=== PATIENT | male | born 1985 | race Caucasian/White ===

== ENCOUNTER → 2018-05-28 14:49 | Outpatient (CLI) | payer OTHER, SELFPAY ==
--- NOTE | 2018-05-28 15:01 | RAD_ITS ---
STUDY: X-RAY - THORACIC SPINE REASON FOR EXAM: Male, 33 years old. Worsening back pain TECHNIQUE: 3 view(s) of the thoracic spine were obtained. COMPARISON: None. FINDINGS: Normal kyphosis of the thoracic spine. There is no substantial scoliosis. Normal thoracic vertebrae and endplates. Normal disc space heights. The soft tissue structures are unremarkable. RAD/Thoracic Spine 3 Views IMPRESSION: Normal x-ray examination of the thoracic spine. Electronically Signed: Tulio Gamboa MD at 16:15 EDT , Service support ,
[2018-05-28 16:11] LABS: Absolute Lymphocyte Count 1.88 X10^3/ul (0.83-4.51); Absolute Neutrophil Count 3.9 X10^3/uL (2.0-7.7); Basophil# 0.01 X10^3/uL; Basophil% 0.2 % (0-1); Eosinophil# 0.13 X10^3/uL; Hematocrit 44.2 % (40-54); Hemoglobin 14.7 g/dl (13.0-16.5); Lymphocyte # 1.88 X10^3/ul (4.0); Lymphocyte % 29.5 % (19-41); Mean Corp Hgb Conc 33.3 g/gl (32-36); Mean Corpuscular Hgb 28.3 pg (27.0-32.0); Mean Corpuscular Volume 85.2 fL (80-94); Mean Platelet Vol. 10.5 fl (6.2-12.0); Monocyte# 0.44 X10^3/uL; Monocyte% 6.9 % (0-10); Neutrophil % 61.1 % (47-70); Platelet Count 186 K/mm3 (150-450); RBC Distribution Width CV 12.1 % (11.6-14.6); RBC Distribution Width SD 37.4 fl (35.1-43.9); Red Blood Count 5.19 M/mm3 (4.6-6.2); White Blood Count 6.4 K/mm3 (4.4-11.0)
[2018-05-28 16:12] LABS: POSITIVE COUNT NO; POSITIVE DIFFERENTIAL NO; POSITIVE MORPHOLOGY NO
[2018-05-28 16:34] LABS: Alanine Aminotransfer ALT/SGPT 33 U/L (16-61); Cholesterol 173 mg/dL (200); EST Glomerular Filtration Rate 103 mL/min (>60); Est Glom Filt Rate - Afr Amer 124 mL/min (>60); High Density Lipoprotein 46 mg/dL
[2018-06-02 16:11] LABS: Testosterone, Free 11.31 ng/dL (5.00-21.00)
[2018-06-03 11:38] LABS: Testosterone, % Free 3.82 % (1.50-4.20); Testosterone, Total 296 ng/dL (264-916)
== END ==
LOC: MFPLAB 14:50 → MTRAD 14:55
PROVIDERS: Family Provider Family Medicine; PCP Family Medicine; Visit Provider Family Medicine
DX: Z00.00 Encounter for general adult medical examination without abnormal findings (principal); M54.6 Pain in thoracic spine; G89.29 Other chronic pain; R79.89 Other specified abnormal findings of blood chemistry
CPT/HCPCS: 36415; 72072; 82465; 82565; 83718; 84402; 84403; 84460; 85025

== ENCOUNTER → 2019-02-03 14:19 | Outpatient (CLI) | payer OTHER, SELFPAY ==
[2019-02-03 08:58] VITALS: BMI 32.4
== END ==
PROVIDERS: Family Provider Family Medicine; PCP Family Medicine; Referring Provider Physician Assistant; Visit Provider Physician Assistant
DX: J02.9 Acute pharyngitis, unspecified (principal)
CPT/HCPCS: 87081

== ENCOUNTER 2019-06-17 16:00 | Outpatient (RCR) | payer OTHER, SELFPAY ==
[2019-02-03 08:58] VITALS: BMI 32.4
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
--- NOTE | 2019-08-26 12:01 | HP.PTDCNRP_ITS ---
HP - Discharge Summary (1) - Patient Information ROSA WATKINS was seen in my office for initial evaluation on 06/17/19. The following Plan of Care was established for this patient: Initial Frequency: 1-2x /Week Initial Duration: 4 Weeks - Anticipated Interventions Patient/Client Instruction: Educate patient on: Condition, Plan of Care For the Purpose of:: To decrease pain, To increase ROM, To improve muscle perfor sarah and motor function, To increase tolerance to activity/condition/position, To improve ability of physical actions for home/community/work/leisure, To improve health of tissue, To decrease soft tissue restriction, To increase flexibility/ROM, To improve endurance, To reduce risk of recurrence, To improve ability to perform tasks related to life management Therapeutic Exercise to Include: Strength training, Body mechanics, Postural training, Flexibilty training, Dynamic Lumbar Stabilization, Day Exercises For the Purpose of:: To decrease pain, To increase ROM, To improve muscle performance and motor function, To increase tolerance to activity/condition/position, To improve ability of physical actions for home/community/work/leisure, To improve health of tissue, To decrease soft tissue restriction, To increase flexibility/ROM, To reduce risk of recurrence, To improve ability to perform tasks related to life management Manual Therapy Techniques to Include: Mobilization Comment: LUMBAR For the Purpose of:: To decrease pain, To increase ROM, To improve nutrient delivery to tissue, To increase oxygenation perfusion, To improve health of tissue, To decrease soft tissue restriction TENS: Yes IF ES: Yes Cryotherapy (ice pack, ice massage): Yes Thermo therapy (hot pack): Yes Ultrasound (thermal/non thermal): Yes For the Purpose of:: To decrease pain, To increase ROM, To improve nutrient delivery to tissue, To increase oxygenation perfusion, To improve health of tissue, To decrease soft tissue restriction This patient was last seen in our office . Pertinent comments regarding their Physical therapy will appear below: Patient seen for PT FOR INTIAL EVALUATION for HEP. At this point I will be discontinuing this patient from physical therapy. I would be happy to see this patient again in the future if found appropriate by the physician. Thank you! Ruddy Rodriguez, PT, Cert MDT, OCS
== END 2019-06-17 19:00 | disposition home or self-care (01) ==
LOC: PT 16:00
PROVIDERS: Family Provider Family Medicine; PCP Family Medicine; Referring Provider Chiropractor; Visit Provider Chiropractor
DX: M51.26 Other intervertebral disc displacement, lumbar region (principal)
CPT/HCPCS: 97110; 97162

== ENCOUNTER → 2020-04-10 14:38 | Outpatient (CLI) | payer OTHER, SELFPAY ==
[2019-02-03 08:58] VITALS: BMI 32.4
[2020-04-10 17:55] LABS: Absolute Lymphocyte Count 1.58 X10^3/uL (0.83-4.51); Absolute Neutrophil Count 4.5 X10^3/uL (2.0-7.7); Basophil# 0.01 X10^3/uL; Basophil% 0.1 % (0-1); Eosinophil# 0.11 X10^3/uL; Eosinophils% 1.6 % (0-5); Hematocrit 45.1 % (40-54); Hemoglobin 14.4 g/dL (13.0-16.5); Lymphocyte # 1.58 X10^3/ul (4.0); Lymphocyte % 23.3 % (19-41); Mean Corp Hgb Conc 31.9 g/dL (32-36); Mean Corpuscular Hgb 27.2 pg (27.0-32.0); Mean Corpuscular Volume 85.3 fL (80-94); Mean Platelet Vol. 11.2 fl (6.2-12.0); Monocyte% 8.8 % (0-10); NRBC Flagged by Analyzer 0 % (0-5); Neutrophil # 4.47 X10^3/uL (2.7-7.7); Neutrophil % 66.1 % (47-70); Platelet Count 227 K/mm3 (150-450); RBC Distribution Width CV 12.6 % (11.6-14.6); RBC Distribution Width SD 39.2 fl (35.1-43.9); Red Blood Count 5.29 M/mm3 (4.6-6.2); White Blood Count 6.8 K/mm3 (4.4-11.0)
[2020-04-10 18:14] LABS: Cholesterol 198 mg/dL (200); High Density Lipoprotein 38 mg/dL; PSA,Total- Diagnostic 0.75 ng/mL (0.0-4.0); Triglycerides 283 mg/dL; Very Low Density Lipoprotein 57 mg/dL (5-40)
== END ==
PROVIDERS: PCP Family Medicine; Referring Provider Family Medicine; Visit Provider Family Medicine
DX: Z00.00 Encounter for general adult medical examination without abnormal findings (principal); E34.9 Endocrine disorder, unspecified
CPT/HCPCS: 36415; 80061; 84153; 85025

== ENCOUNTER → 2021-08-01 15:32 | Outpatient (CLI) | payer OTHER, SELFPAY ==
[2021-08-01 18:23] LABS: Creatinine, Serum 0.85 mg/dL (0.70-1.30); EST Glomerular Filtration Rate 108 mL/min (>60); Est Glom Filt Rate - Afr Amer 131 mL/min (>60)
[2021-08-02 09:28] LABS: Hepatitis C Antibody Non-Reactive (Nonreactive)
== END ==
PROVIDERS: PCP Family Medicine; Referring Provider Family Medicine; Visit Provider Family Medicine
DX: Z00.00 Encounter for general adult medical examination without abnormal findings (principal); Z11.59 Encounter for screening for other viral diseases
CPT/HCPCS: 36415; 82565; 86803

== ENCOUNTER → 2022-03-06 | Outpatient (CLI) | payer OTHER, SELFPAY ==
[2022-03-06 16:07] LABS: T4 Free Direct 0.91 ng/dL (0.76-1.46); Thyroid Stim Hormone (TSH) 1.11 uIU/mL (0.358-3.74)
== END | disposition home or self-care (01) ==
LOC: MFPLAB 13:44
PROVIDERS: PCP Family Medicine; Referring Provider Family Medicine; Visit Provider Family Medicine
DX: L65.9 Nonscarring hair loss, unspecified (principal)
CPT/HCPCS: 36415; 84439; 84443; 84481

== ENCOUNTER → 2022-05-23 | Outpatient (CLI) | payer OTHER, SELFPAY ==
[2022-05-23 12:01] LABS: Absolute Lymphocyte Count 1.47 X10^3/uL (0.83-4.51); Absolute Neutrophil Count 3.5 X10^3/uL (2.0-7.7); Basophil# 0.01 X10^3/uL; Basophil% 0.2 % (0-1); Eosinophil# 0.09 X10^3/uL; Eosinophils% 1.6 % (0-5); Hematocrit 41.6 % (40-54); Hemoglobin 13.7 g/dL (13.0-16.5); Lymphocyte # 1.47 X10^3/ul (0.83-4.51); Lymphocyte % 26.3 % (19-41); Mean Corp Hgb Conc 32.9 g/dL (32-36); Mean Corpuscular Hgb 28.6 pg (27.0-32.0); Mean Corpuscular Volume 86.8 fL (80-94); Mean Platelet Vol. 10.9 fl (6.2-12.0); Monocyte# 0.48 X10^3/uL; Monocyte% 8.6 % (0-10); NRBC Flagged by Analyzer 0 % (0-5); Neutrophil % 62.8 % (47-70); Platelet Count 208 K/mm3 (150-450); RBC Distribution Width CV 12.1 % (11.6-14.6); RBC Distribution Width SD 38.9 fl (35.1-43.9); Red Blood Count 4.79 M/mm3 (4.6-6.2); White Blood Count 5.6 K/mm3 (4.4-11.0)
[2022-05-23 12:38] LABS: ALB/GLOB Ratio 1.2 RATIO (0.9-2.4); AST(SGOT) 18 U/L (15-37); Alanine Aminotransfer ALT/SGPT 36 U/L (16-61); Albumin, Serum 4.1 g/dL (3.2-5.0); Alkaline Phosphatase 51 U/L (45-117); Anion Gap 5 (5-15); BUN 19 mg/dL (7-18); BUN/Creat Ratio 21.2 RATIO (10-20); Calcium,Total 9.1 mg/dL (8.5-10.1); Chloride 105 mmol/L (98-107); Cholesterol 189 mg/dL (200); EST Glomerular Filtration Rate 101 mL/min (>60); Est Glom Filt Rate - Afr Amer 122 mL/min (>60); Globulin 3.4 g/dL (2.2-4.2); Glucose 101 mg/dL (74-106); High Density Lipoprotein 42 mg/dL; Potassium 4.3 mmol/L (3.5-5.1); Protein, Total 7.5 g/dL (6.4-8.2); Sodium Level 137 mmol/L (136-145); Triglycerides 92 mg/dL; Very Low Density Lipoprotein 18 mg/dL (5-40)
[2022-05-26 00:02] LABS: ANTINUCLEAR ANTIBODIES DIRECT Positive (Negative)
[2022-05-31 07:42] LABS: HLA B27 Negative (.)
[2022-06-02 19:06] LABS: Anti-Centromere B Ab <0.2 AI (0.0-0.9); Anti-Chromatin <0.2 AI (0.0-0.9); Anti-Jo <0.2 AI (0.0-0.9); Anti-Scleroderma-70 AB <0.2 AI (0.0-0.9); Anti-ribosomal P Antibodies <0.2 AI (0.0-0.9); RNP Ab 7.5 AI (0.0-0.9); SJOGREN'S Anti-SS-A test < 0.2 AI (0.0-0.9); SJOGREN'S Anti-SS-B test < 0.2 AI (0.0-0.9); Smith Ab <0.2 AI (0.0-0.9); Smith/RNP Ab <0.2 AI (0.0-0.9)
[2022-06-02 19:14] LABS: Anti-dsDNA Ab <1 IU/mL (0-9)
== END | disposition home or self-care (01) ==
LOC: MFPLAB 10:16
PROVIDERS: PCP Family Medicine; Referring Provider Family Medicine; Visit Provider Family Medicine
DX: L63.9 Alopecia areata, unspecified (principal); R79.89 Other specified abnormal findings of blood chemistry; Z13.220 Encounter for screening for lipoid disorders; R76.8 Other specified abnormal immunological findings in serum
CPT/HCPCS: 36415; 80053; 80061; 81374; 84403; 85025; 86038; 86225; 86235

== ENCOUNTER → 2022-08-28 | Outpatient (CLI) | payer OTHER, SELFPAY ==
[2022-08-28 11:18] LABS: EXAGEN MAILED SPECIMEN
[2022-08-28 12:20] LABS: Erythrocyte Sedimentation Rate 5 mm/hr (0-20)
[2022-08-28 12:26] LABS: Absolute Lymphocyte Count 1.85 X10^3/uL (0.83-4.51); Absolute Neutrophil Count 4.3 X10^3/uL (2.0-7.7); Basophil# 0.01 X10^3/uL; Basophil% 0.1 % (0-1); Eosinophils% 1.5 % (0-5); Hematocrit 43.1 % (40-54); Hemoglobin 14.3 g/dL (13.0-16.5); Lymphocyte # 1.85 X10^3/ul (0.83-4.51); Lymphocyte % 27.5 % (19-41); Mean Corp Hgb Conc 33.2 g/dL (32-36); Mean Corpuscular Hgb 28.5 pg (27.0-32.0); Mean Corpuscular Volume 85.9 fL (80-94); Mean Platelet Vol. 10.7 fl (6.2-12.0); Monocyte# 0.49 X10^3/uL; Monocyte% 7.3 % (0-10); NRBC Flagged by Analyzer 0 % (0-5); Neutrophil # 4.25 X10^3/uL (2.7-7.7); Neutrophil % 63.3 % (47-70); Platelet Count 212 K/mm3 (150-450); RBC Distribution Width CV 12.3 % (11.6-14.6); RBC Distribution Width SD 38.1 fl (35.1-43.9); Red Blood Count 5.02 M/mm3 (4.6-6.2); White Blood Count 6.7 K/mm3 (4.4-11.0)
[2022-08-28 12:32] LABS: Partial Thromboplast Time 33.5 Seconds (24.1-36.2)
[2022-08-28 12:42] LABS: ALB/GLOB Ratio 1.3 RATIO (0.9-2.4); AST(SGOT) 33 U/L (15-37); Alanine Aminotransfer ALT/SGPT 63 U/L (16-61); Albumin, Serum 4.5 g/dL (3.2-5.0); Alkaline Phosphatase 55 U/L (45-117); Anion Gap 7 (5-15); BUN 20 mg/dL (7-18); BUN/Creat Ratio 18.5 RATIO (10-20); CRP < 2.90 mg/L (0.0-3.0); Calcium,Total 9.8 mg/dL (8.5-10.1); Chloride 104 mmol/L (98-107); Creatinine, Serum 1.08 mg/dL (0.70-1.30); EST Glomerular Filtration Rate 81 mL/min (>60); Est Glom Filt Rate - Afr Amer 98 mL/min (>60); Globulin 3.5 g/dL (2.2-4.2); Glucose 98 mg/dL (74-106); Potassium 4.1 mmol/L (3.5-5.1); Sodium Level 137 mmol/L (136-145)
[2022-08-28 15:11] LABS: Color, Urine Straw (Yellow); Glucose, Dipstick Normal (Normal); Ketone-Dipstick Negative (Negative); Leukocyte Esterase-Dipstick Negative /ul (Negative); Nitrite-Dipstick Negative (Negative); Occult Blood-Urine Negative /ul (Negative); Protein-Dipstick Negative (Negative); Specific Gravity, Urine 1.005 (1.002-1.030); Urine Bilirubin Dipstick Negative (Negative); Urine Clarity Clear (Clear); Urine Urobilinogen Normal (Normal)
[2022-08-28 15:57] LABS: Protein, Urine (Random) < 6.0 mg/dL (<11.9)
[2022-08-29 16:53] LABS: Thrombin Time 18.9 sec (0.0-23.0)
[2022-08-29 18:07] LABS: Dilute Prothrombin Time (dPT) 40.7 sec (0.0-47.6); Dilute Russell Viper Venom 46.8 sec (0.0-47.0); Hexagonal Phase Phospholipid 7 sec (0-11); PTT-LA 42.1 sec (0.0-51.9); Thrombin Time 18.3 sec (0.0-23.0); dPT Confirm Ratio 1.08 Ratio (0.00-1.34)
[2022-08-30 12:23] LABS: Interpretation Comment: (.)
== END | disposition home or self-care (01) ==
PROVIDERS: PCP Family Medicine; Referring Provider Internal Medicine Rheumatology; Visit Provider Internal Medicine Rheumatology
DX: R76.8 Other specified abnormal immunological findings in serum (principal); L63.9 Alopecia areata, unspecified; M21.41 Flat foot [pes planus] (acquired), right foot; R79.89 Other specified abnormal findings of blood chemistry; J45.909 Unspecified asthma, uncomplicated
CPT/HCPCS: 36415; 80053; 81002; 82570; 84156; 85025; 85598; 85610; 85652; 85670; 85730; 86140

== ENCOUNTER → 2022-10-10 | Outpatient (CLI) | payer OTHER, SELFPAY ==
[2022-10-10 12:09] LABS: Absolute Lymphocyte Count 1.75 X10^3/uL (0.83-4.51); Absolute Neutrophil Count 3.6 X10^3/uL (2.0-7.7); Basophil# 0.01 X10^3/uL; Basophil% 0.2 % (0-1); Eosinophil# 0.09 X10^3/uL; Eosinophils% 1.5 % (0-5); Hematocrit 43.2 % (40-54); Hemoglobin 14.1 g/dL (13.0-16.5); Lymphocyte # 1.75 X10^3/ul (0.83-4.51); Lymphocyte % 29.1 % (19-41); Mean Corp Hgb Conc 32.6 g/dL (32-36); Mean Corpuscular Hgb 28.5 pg (27.0-32.0); Mean Corpuscular Volume 87.3 fL (80-94); Mean Platelet Vol. 10.7 fl (6.2-12.0); Monocyte# 0.59 X10^3/uL; Monocyte% 9.8 % (0-10); NRBC Flagged by Analyzer 0 % (0-5); Neutrophil # 3.55 X10^3/uL (2.7-7.7); Neutrophil % 59.1 % (47-70); Platelet Count 253 K/mm3 (150-450); RBC Distribution Width CV 12.4 % (11.6-14.6); RBC Distribution Width SD 39.6 fl (35.1-43.9); Red Blood Count 4.95 M/mm3 (4.6-6.2)
[2022-10-10 12:41] LABS: ALB/GLOB Ratio 1.4 RATIO (0.9-2.4); AST(SGOT) 29 U/L (15-37); Alanine Aminotransfer ALT/SGPT 61 U/L (16-61); Albumin, Serum 4.5 g/dL (3.2-5.0); Alkaline Phosphatase 48 U/L (45-117); Anion Gap 8 (5-15); BUN 20 mg/dL (7-18); BUN/Creat Ratio 21.3 RATIO (10-20); Calcium,Total 9.2 mg/dL (8.5-10.1); Chloride 104 mmol/L (98-107); Cholesterol 223 mg/dL (200); Creatinine, Serum 0.94 mg/dL (0.70-1.30); EST Glomerular Filtration Rate 95 mL/min (>60); Est Glom Filt Rate - Afr Amer 115 mL/min (>60); Globulin 3.2 g/dL (2.2-4.2); Glucose 90 mg/dL (74-106); High Density Lipoprotein 43 mg/dL; Potassium 4.4 mmol/L (3.5-5.1); Protein, Total 7.7 g/dL (6.4-8.2); Sodium Level 138 mmol/L (136-145); Triglycerides 118 mg/dL; Very Low Density Lipoprotein 24 mg/dL (5-40)
== END | disposition home or self-care (01) ==
LOC: MFPLAB 10:07
PROVIDERS: PCP Family Medicine; Referring Provider Family Medicine; Visit Provider Dermatology Pediatric Dermatology
DX: L63.8 Other alopecia areata (principal); Z79.899 Other long term (current) drug therapy
CPT/HCPCS: 36415; 80053; 80061; 85025

== ENCOUNTER → 2023-01-16 | Outpatient (CLI) | payer OTHER, SELFPAY ==
[2023-01-16 15:01] LABS: Absolute Lymphocyte Count 1.89 X10^3/uL (0.83-4.51); Absolute Neutrophil Count 4.2 X10^3/uL (2.0-7.7); Basophil# 0.02 X10^3/uL; Basophil% 0.3 % (0-1); Eosinophil# 0.07 X10^3/uL; Hematocrit 44.3 % (40-54); Hemoglobin 14.3 g/dL (13.0-16.5); Lymphocyte # 1.89 X10^3/ul (0.83-4.51); Mean Corp Hgb Conc 32.3 g/dL (32-36); Mean Corpuscular Hgb 28.7 pg (27.0-32.0); Mean Corpuscular Volume 88.8 fL (80-94); Mean Platelet Vol. 10.7 fl (6.2-12.0); Monocyte# 0.54 X10^3/uL; NRBC Flagged by Analyzer 0 % (0-5); Neutrophil # 4.19 X10^3/uL (2.7-7.7); Platelet Count 261 K/mm3 (150-450); RBC Distribution Width CV 12.2 % (11.6-14.6); RBC Distribution Width SD 38.7 fl (35.1-43.9); Red Blood Count 4.99 M/mm3 (4.6-6.2); White Blood Count 6.8 K/mm3 (4.4-11.0)
[2023-01-16 15:48] LABS: ALB/GLOB Ratio 1.2 RATIO (0.9-2.4); AST(SGOT) 16 U/L (15-37); Alanine Aminotransfer ALT/SGPT 47 U/L (16-61); Albumin, Serum 4.1 g/dL (3.2-5.0); Alkaline Phosphatase 50 U/L (45-117); Anion Gap 7 (5-15); BUN 16 mg/dL (7-18); BUN/Creat Ratio 17.6 RATIO (10-20); Calcium,Total 9.1 mg/dL (8.5-10.1); Chloride 106 mmol/L (98-107); Cholesterol 147 mg/dL (200); Creatinine, Serum 0.91 mg/dL (0.70-1.30); EST Glomerular Filtration Rate 99 mL/min (>60); Est Glom Filt Rate - Afr Amer 120 mL/min (>60); Globulin 3.4 g/dL (2.2-4.2); Glucose 90 mg/dL (74-106); High Density Lipoprotein 34 mg/dL; Potassium 3.9 mmol/L (3.5-5.1); Protein, Total 7.5 g/dL (6.4-8.2); Sodium Level 139 mmol/L (136-145); Triglycerides 93 mg/dL; Very Low Density Lipoprotein 19 mg/dL (5-40)
[2023-01-18 16:09] LABS: ANTINUCLEAR ANTIBODIES DIRECT Positive (Negative); Anti-Centromere B Ab <0.2 AI (0.0-0.9); Anti-Chromatin <0.2 AI (0.0-0.9); Anti-Jo <0.2 AI (0.0-0.9); Anti-Scleroderma-70 AB <0.2 AI (0.0-0.9); RNP Ab >8.0 AI (0.0-0.9); SJOGREN'S Anti-SS-A test < 0.2 AI (0.0-0.9); SJOGREN'S Anti-SS-B test < 0.2 AI (0.0-0.9); Smith Ab <0.2 AI (0.0-0.9)
[2023-01-18 18:29] LABS: Anti-dsDNA Ab <1 IU/mL (0-9)
== END | disposition home or self-care (01) ==
PROVIDERS: PCP Family Medicine; Referring Provider Family Medicine; Visit Provider Family Medicine
DX: E78.00 Pure hypercholesterolemia, unspecified (principal)
CPT/HCPCS: 36415; 80053; 80061; 85025; 86038; 86225; 86235

== ENCOUNTER → 2023-05-22 | Outpatient (CLI) | payer OTHER, SELFPAY ==
--- NOTE | 2023-05-22 10:59 | RAD_ITS ---
STUDY: X-RAY - LUMBOSACRAL SPINE REASON FOR EXAM: Male, 38 years old. Hx of herniated disc, pain worse TECHNIQUE: 7 view(s) of the lumbosacral spine were obtained with flexion and extension views. COMPARISON: None FINDINGS: Normal lumbar lordosis. There is no substantial scoliosis. There is normal alignment of the vertebrae. Minimal flexion and extension seen. No subluxations. Normal vertebral bodies and endplates. Normal disc space heights. Normal bilateral sacral ala, sacroiliac joints, and visualized sacrum. Normal visualized soft tissue structures. RAD/L/S Spine w Bend Min 6 Vw IMPRESSION: Normal x-ray examination of the lumbosacral spine. Electronically Signed: Xavier Lebron MD at 20:44 EDT ,
== END | disposition home or self-care (01) ==
LOC: MTRAD 10:58
PROVIDERS: PCP Family Medicine; Visit Provider Family Medicine
DX: M51.26 Other intervertebral disc displacement, lumbar region (principal)
CPT/HCPCS: 72114

== ENCOUNTER 2023-06-25 10:30 | Outpatient (RCR) | payer OTHER, SELFPAY ==
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
--- NOTE | 2023-07-24 13:15 | HP.PT.NRP ---
Patient Information Patient Information: ROSA WATKINS was seen in my office for initial evaluation on 06/05/23. The following Plan of Care was established for this patient: POC Established Initial Frequency: 2x /Week Initial Duration: 4 Weeks Anticipated Interventions Patient/Client Instruction: Educate patient on: Benefits of Fitness Program Therapeutic Exercise to Include: Strength training, Endurance training, Balance training, Coordination, Agility training, Body mechanics, Postural training, Flexibilty training, Gait and locomotor training, Neuromotor development, In an aquatic setting, Passive ROM, Active ROM, Dynamic Lumbar Stabilization and Scapular Strength/Stabilization For the Purpose of:: To improve muscle performance and motor function Last Seen Last Seen: This patient was last seen in our office . Pertinent comments regarding their Physical therapy will appear below: Patient has not attended PT in over 30 days- he is appropriate to return to MD for further evaluation- according to his PT notes he was still having significant s/s. Discharge. At this point I will be discontinuing this patient from physical therapy. I would be happy to see this patient again in the future if found appropriate by the physician. Thank you! Radha Ozuna, DPT Balance/Gait/Functional tests Balance/Special Test Scores Oswestry Low Back Score: 23
== END 2023-06-25 19:00 | disposition home or self-care (01) ==
LOC: PT 10:30
PROVIDERS: PCP Family Medicine; Referring Provider Family Medicine; Visit Provider Family Medicine
DX: M51.26 Other intervertebral disc displacement, lumbar region (principal); M54.9 Dorsalgia, unspecified
CPT/HCPCS: 97113; 97162

== ENCOUNTER 2023-09-29 10:30 | Outpatient (RCR) | payer OTHER, SELFPAY ==
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
--- NOTE | 2023-08-27 11:16 | HP.PTREVAL_ITS ---
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 Please see the progress note below for an update on the physical therapy plan of care! Subjective Subjective: PATIENT REPORTS HE FEELS ALMOST BACK TO PRE-INJURY LEVEL HOWEVER HE HASN'T TESTED IT OUT TO THE DEGREE HE WAS POST INJURY TO KNOW FOR SURE. 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 HE REPORTS HE FEELS LIKE HE COULD DO THIS STUFF BUT HE HASN'T BECAUSE HE ISN'T SUPPOSED TO. PATIENT REPORTS HE HAS BEEN GETTING SOME TINGLING (POINTING TO THE OUTSIDE OF HIS L THIGH) IN THE LAST THIGH THAT COMES AND GOES AND OCCURS WITH PROLONGED SITTING ON THE COUCH. IT GOES AWAY QUICKLY WITH CHANGE OF POSITION. THE TINGLING STARTED IN THE PAST WEEK FOR NO APPARENT REASON. THIS IS THE FIRST TIME HE HAS HAD LLE SX'S. SX'S HAVE ALWAYS BEEN IN R LE AND THOSE ARE PROGRESSIVELY GETTING BETTER. CURRENTLY JUST A SMALL AREA OF NUMBESS ON THE LATERAL ASPECT OF R THIGH THAT IS ABOUT 1/4 THE SIZE IT WAS AFTER SURGERY. NO LONGER HAVING LOW BACK PAIN BUT IT DOES GET TIRED AT WORK. UPPER BACK IS TIGHT. R LEG IS GETTING STRONGER AND FEELS PRETTY EQUAL TO L NOW. STATES HE IS WEARING THE BRACE AT WORK ALL DAY EVERY DAY WITH ICE (WORKING 13 HRS A DAY) BUT FORGOT BRACE TODAY. OTHERWISE NOT WEARING BRACE UNLESS ON A LONG CAR RIDE. STOPPED MOBIC ABOUT 3 WKS AGO AND THIS IS THE FIRST TIME HE HAS BEEN OFF MOBIC IN 5 YEARS. NOT TAKING ANY OTHER PAIN MEDS EVEN OTC. ALSO ABLE TO STOP PEPSID. PATIENT REPORTS HE CAN GO UP STEPS RECIP NOW AND IT FEELS ABOUT THE SAME GOING UP WITH EA LEG. Objective Objective/Function: PATIENT WAS SEEN TODAY FOR RE-ASSESSMENT OF PROGRESS TOWARD THE SET PT GOALS AND THE NEED FOR FURTHER PHYSICAL THERAPY VS READINESS FOR DISCHARGE. PATIENT IS MAKING GOOD IMPROVEMENT TOWARD ALL GOALS HOWEVER HE HAS RECENT NEW ONSET OF MILD INTERMITTENT L LATERAL THIGH NUMBNESS AND HE IS STILL FUNCTIONING AT RESTRICTED ACTIVITY LEVEL. HE STATES HE WOULD LIKE TO START LIFTING MORE AND WALKING ON HIS TREADMILL MORE. HE REPORTS HE USE TO INCLINE HIS TREADMILL A LOT. THIS PT RECOMMENDED NOT INCREASING HIS LIFTING LIMIT FROM CURRENT 10 LBS BY MORE THAN 5 LBS A WEEK (OR LESS IF SX'S INCREASE) AND TO CONTINUE WALKING PROGRAM WITHOUT TREADMILL ON LEVEL OR NEAR LEVEL SURFACES. OK TO WEAN OUT OF BRACE SX'S ALLOW. UPON EXAM TODAY: Objective: Sitting/Standing Posture: REDUCED LUMBAR LORDOSIS BUT NO RELEVANT LATERAL SHIFT. Other Observations: INDEP GAIT INTO PT WITHOUT ANY ASSISTIVE DEVICES OR LOB. FAIR CADANCE AND EQUAL WEIGHT BEARING TIME UBALDO LE'S. NOT WEARING BACK BRACE. Sensory deficit: DECREASED LIGHT TOUCH SENSATION RIGHT LATERAL THIGH COMPARED TO LEFT. PATIENT REPORTS NORMAL SENSATION WITH LIGHT TOUCH TESTING OF L LATERAL THIGH. ROM deficit: MILD UBALDO HS AND GASTROC SOLEUS TIGHTNESS. Motor deficit: UBALDO LE'S 5/5. Dural Signs: NEGATIVE UBALDO LE'S. Lumbar mvmt loss: FLEX - MIN EXT - MERE UBALDO SG - MOD PATIENT DENIES PAIN, NUMBNESS AND TINGLING WITH LUMBAR ROM TESTING ALL PLANES. Core strength: FAIR HEP INSTRUCTION: INITIATED TRUNK FLEXION AND ROTATION IN LYING WITH SKTC AND LTR. PATIENT TOLERATED BOTH WELL. SEE HEP INST BELOW. PATIENT SAT UP OFF THE TABLE WITHOUT LOG ROLLING AND SHORTLY AFTER IN STANDING REPORTED FEELING LEFT LATERAL THIGH NUMBNESS. IT ABOLISHED IMMEDIATELY IN SITTING. FURTHER INSTRUCTIONS GIVEN TO PATIENT FOR TRYING TO AVOID LLE NUMBNES. FURTHER INSTRUCTIONS GIVEN FOR PROPER LIFTING AND CARRYING. PATIENT COMMUNICATED A GOOD UNDERSTANDING OF ALL INSTRUCTIONS AFTER GIVEN TODAY. CASE CONFERENCE WITH LULÚ Mchugh PTA BEFORE AND AFTER RE-CHECK TODAY. Plan Plan Plan: CONTINUE PT 2-3 TIMES A WK X 4-6 WKS FOR CORE STRENGTH AND STABILITY TRAINING WITH NEUTRAL SPINE. OK TO WEAN OUT OF BRACE OK TO INCREASE LIFTING BY 5 LBS A WK UNLESS SX'S INCREASE (GIVE FURTHER INSTRUCTIONS IN PROPER BODY MECHANICS FOR BENDING (HINGE IN HIPS), LIFTING AND CARRYING). CONTINUE LE ROM, STRETCHING AND STRENGTHENING. POSTURAL STRETCHING AND STRENGTHENING. Balance/Gait/Functional tests Balance/Special Test Scores Oswestry Low Back Score: 11 Goals Goals Goal 1:: DECREASE C/O LOW BACK AND R LE SX'S. Goal Time Frame: 6-8 Weeks Goal Progress: Progressing Goal 2:: IMPROVE PERSONAL CARE, STANDING, SOCIAL LIFE, TRAVEL, HOMEMAKING AND WORK FUNCTION Goal Time Frame: 6-8 Weeks Goal Progress: Progressing Goal 3:: INSTRUCT IN PROPHYLAXIS Goal Time Frame: 6-8 Weeks Goal Progress: Progressing Anticipated Interventions Anticipated Interventions Patient/Client Instruction: Educate patient on: Condition, Plan of Care and Risk Factors For the Purpose of:: To improve self management Therapeutic Exercise to Include: Strength training, Body mechanics, Postural training, Flexibilty training, Neuromotor development and Dynamic Lumbar Stabilization For the Purpose of:: To decrease pain, To increase ROM, To improve muscle performance and motor function, To increase tolerance to activity/condition/position and To improve ability of physical actions for home/community/work/leisure Re-Evaluation Ending Re-evaluation ending: Please do not hesitate to contact me at [phone] by phone or Fax: if you have questions or concerns regarding this new plan of care! Sincerely, Shanique Sanders, PT, Cert MDT
--- NOTE | 2023-09-29 13:58 | HP.PTDCSUM ---
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 Discharge Date: 09/29/23 Please see the following information for a summary of their discharge status. Subjective Subjective: PATIENT REPORTS HE IS DOING GOOD. STATES HE TALKED TO HIS SURGEONS OFFICE AND THEY DO NOT NEED TO SEE HIM. REPORTS HE NO LONGER HAS ANY RESTRICTIONS AND ALL ACTIVITIES ARE TOLERATED. HE REPORTS HIS LEG SX'S HAVE RESOLVED. HE STATES HE IS NO LONGER WEARING HIS BACK BRACE AND FEELS READY TO BE DISCHARGED. REPORTS BEING ABLE TO CARRY AT LEAST 30 LBS WITH NO PROBLEMS. Pain L LE: Pain Intensity (Out of 10): 1 Overall Improvement % Improvement: 98 Objective Objective/Function: PATIENT WAS SEEN TODAY FOR RE-ASSESSMENT OF PROGRESS TOWARD THE SET PT GOALS AND THE NEED FOR FURTHER PHYSICAL THERAPY VS READINESS FOR DISCHARGE. ALL PT GOALS HAVE BEEN MET AND PATIENT IS APPROPRIATE FOR AND AGREEABLE TO D/C. UPON EXAM TODAY: Lumbar mvmt loss: FLEX - MIN EXT - MOD UBALDO SG - MIN PATIENT DENIES PAIN, NUMBNESS AND TINGLING WITH LUMBAR ROM TESTING ALL PLANES. Core strength: FAIR Goals Goal 1:: DECREASE C/O LOW BACK AND R LE SX'S. Goal Progress: Goal Met Goal 2:: IMPROVE PERSONAL CARE, STANDING, SOCIAL LIFE, TRAVEL, HOMEMAKING AND WORK FUNCTION Goal Progress: Goal Met Goal 3:: INSTRUCT IN PROPHYLAXIS Goal Progress: Goal Met Plan Plan: D/C D/C Information d/c sentence: If there are questions or concerns regarding this patient's physical therapy, please feel free to call me at [phone]. Thank you for the referral of this patient. Sincerely, Shanique Sanders, PT, Cert MDT Balance/Gait/Functional tests Balance/Special Test Scores Oswestry Low Back Score: 0 Improvement % Improvement: 98
== END 2023-09-29 19:00 | disposition home or self-care (01) ==
LOC: PT 10:30
PROVIDERS: PCP Family Medicine
DX: M51.26 Other intervertebral disc displacement, lumbar region (principal)
CPT/HCPCS: 97110; 97112; 97113; 97162; 97164; 97530

== ENCOUNTER → 2024-01-15 | Outpatient (CLI) | payer OTHER, SELFPAY ==
[2024-01-15 15:34] LABS: Absolute Lymphocyte Count 1.89 X10^3/uL (0.83-4.51); Absolute Neutrophil Count 2.8 X10^3/uL (2.0-7.7); Basophil# 0.01 X10^3/uL; Basophil% 0.2 % (0-1); Eosinophil# 0.07 X10^3/uL; Eosinophils% 1.3 % (0-5); Hematocrit 44.1 % (40-54); Hemoglobin 14.3 g/dL (13.0-16.5); Lymphocyte # 1.89 X10^3/ul (0.83-4.51); Lymphocyte % 35.9 % (19-41); Mean Corp Hgb Conc 32.4 g/dL (32-36); Mean Corpuscular Hgb 28.1 pg (27.0-32.0); Mean Corpuscular Volume 86.6 fL (80-94); Mean Platelet Vol. 10.6 fl (6.2-12.0); Monocyte# 0.49 X10^3/uL; Monocyte% 9.3 % (0-10); NRBC Flagged by Analyzer 0 % (0-5); Neutrophil # 2.79 X10^3/uL (2.7-7.7); Neutrophil % 52.9 % (47-70); Platelet Count 193 K/mm3 (150-450); RBC Distribution Width CV 12.8 % (11.6-14.6); RBC Distribution Width SD 40.2 fl (35.1-43.9); Red Blood Count 5.09 M/mm3 (4.6-6.2); White Blood Count 5.3 K/mm3 (4.4-11.0)
[2024-01-15 19:11] LABS: ALB/GLOB Ratio 1.2 RATIO (0.9-2.4); AST(SGOT) 41 U/L (15-37); Alanine Aminotransfer ALT/SGPT 100 U/L (16-61); Albumin, Serum 4.3 g/dL (3.2-5.0); Alkaline Phosphatase 59 U/L (45-117); Anion Gap 8 (5-15); BUN 19 mg/dL (7-18); BUN/Creat Ratio 18.1 RATIO (10-20); Calcium,Total 9.2 mg/dL (8.5-10.1); Chloride 107 mmol/L (98-107); Cholesterol 236 mg/dL (200); Creatinine, Serum 1.05 mg/dL (0.70-1.30); EST Glomerular Filtration Rate 83 mL/min (>60); Est Glom Filt Rate - Afr Amer 101 mL/min (>60); Globulin 3.5 g/dL (2.2-4.2); Glucose 93 mg/dL (74-106); High Density Lipoprotein 49 mg/dL; PSA,Total- Diagnostic 0.39 ng/mL (0.0-4.0); Potassium 4.2 mmol/L (3.5-5.1); Protein, Total 7.8 g/dL (6.4-8.2); Sodium Level 139 mmol/L (136-145); Triglycerides 98 mg/dL; Very Low Density Lipoprotein 20 mg/dL (5-40)
[2024-01-19 12:09] LABS: ANTINUCLEAR ANTIBODIES DIRECT Positive (Negative)
[2024-01-22 11:09] LABS: Anti-Centromere B Ab <0.2 AI (0.0-0.9); Anti-Chromatin <0.2 AI (0.0-0.9); Anti-Jo <0.2 AI (0.0-0.9); Anti-Scleroderma-70 AB <0.2 AI (0.0-0.9); Anti-dsDNA Ab <1 IU/mL (0-9); RNP Ab >8.0 AI (0.0-0.9); SJOGREN'S Anti-SS-A test < 0.2 AI (0.0-0.9); SJOGREN'S Anti-SS-B test < 0.2 AI (0.0-0.9); Smith Ab <0.2 AI (0.0-0.9)
== END | disposition home or self-care (01) ==
LOC: MFPLAB 11:30
PROVIDERS: PCP Family Medicine; Visit Provider Family Medicine
DX: R79.89 Other specified abnormal findings of blood chemistry (principal); R76.8 Other specified abnormal immunological findings in serum
CPT/HCPCS: 36415; 80053; 80061; 84153; 84403; 85025; 86038; 86225; 86235

== ENCOUNTER → 2024-09-09 | Outpatient (CLI) | payer OTHER, SELFPAY ==
[2024-09-12 15:07] LABS: CHOLESTEROL TOTAL 235 mg/dL (100-199); HDL-C 45 mg/dL (>39); HDL-P TOTAL 30.1 umol/L (>=30.5); INSULIN RESISTANCE SCORE 84 (<=45); LDL SIZE 21.2 nm (>20.5); LDL-C (NIH CALC) 157 mg/dL (0-99); LDL-P 1927 nmol/L (<1000); SMALL LDL-P 675 nmol/L (<=527); TRIGLYCERIDES 179 mg/dL (0-149)
== END | disposition home or self-care (01) ==
LOC: MFPLAB 10:09
PROVIDERS: PCP Family Medicine; Referring Provider Family Medicine; Visit Provider Family Medicine
DX: E78.00 Pure hypercholesterolemia, unspecified (principal)
CPT/HCPCS: 36415; 80061; 83704

== ENCOUNTER → 2025-01-13 | Outpatient (CLI) | payer OTHER, SELFPAY ==
[2025-01-13 12:37] LABS: Absolute Lymphocyte Count 2.35 X10^3/uL (0.83-4.51); Absolute Neutrophil Count 3.7 X10^3/uL (2.0-7.7); Basophil# 0.04 X10^3/uL; Basophil% 0.6 % (0-1); Eosinophil# 0.18 X10^3/uL; Eosinophils% 2.7 % (0-5); Hematocrit 44.3 % (40-54); Hemoglobin 14.7 g/dL (13.0-16.5); Lymphocyte # 2.35 X10^3/ul (0.83-4.51); Lymphocyte % 34.7 % (19-41); Mean Corp Hgb Conc 33.2 g/dL (32-36); Mean Corpuscular Hgb 28.9 pg (27.0-32.0); Mean Platelet Vol. 10.1 fl (6.2-12.0); Monocyte# 0.45 X10^3/uL; Monocyte% 6.6 % (0-10); NRBC Flagged by Analyzer 0 % (0-5); Neutrophil # 3.71 X10^3/uL (2.7-7.7); Neutrophil % 54.7 % (47-70); Platelet Count 229 K/mm3 (150-450); RBC Distribution Width SD 38.5 fl (35.1-43.9); Red Blood Count 5.09 M/mm3 (4.6-6.2); White Blood Count 6.8 K/mm3 (4.4-11.0)
[2025-01-13 13:12] LABS: ALB/GLOB Ratio 1.7 RATIO (0.9-2.4); AST(SGOT) 25 U/L (<=37); Alanine Aminotransfer ALT/SGPT 41 U/L (<=46); Albumin, Serum 4.6 g/dL (3.5-5.0); Alkaline Phosphatase 50 U/L (40-129); Anion Gap 13 (5-15); BUN 15 mg/dL (4-19); BUN/Creat Ratio 15.9 RATIO (10-20); Calcium,Total 9.4 mg/dL (7.6-11.0); Carbon Dioxide 22.3 mmol/L (21.0-32.0); Chloride 103 mmol/L (98-108); Cholesterol 148 mg/dL (<=200); Creatinine, Serum 0.94 mg/dL (0.70-1.20); EST Glomerular Filtration Rate 105 (>60); Globulin 2.7 g/dL (2.2-4.2); Glucose 98 mg/dL (70-99); High Density Lipoprotein 57 mg/dL; Low Density Lipoprotein Calc. 75 mg/dL; Potassium 4.6 mmol/L (3.3-5.1); Protein, Total 7.3 g/dL (5.9-8.4); Sodium Level 138 mmol/L (133-145); Total Bilirubin 0.52 mg/dL (0.00-1.30); Triglycerides 85 mg/dL; Very Low Density Lipoprotein 17 mg/dL (5-40); cholesterol:hdl ratio screen 2.62
[2025-01-13 13:38] LABS: Hemoglobin A1c 5.8 % (<=5.6)
[2025-01-19 10:08] LABS: DHEA Sulfate > 1000.0 ug/dL (102.6-416.3); Testosterone, % Free 4.39 % (1.50-4.20); Testosterone, Free 14.14 ng/dL (5.00-21.00); Testosterone, Total 322 ng/dL (264-916)
== END | disposition home or self-care (01) ==
LOC: MTLAB 09:31
PROVIDERS: PCP Family Medicine; Referring Provider Family Medicine; Visit Provider Family Medicine
DX: R79.89 Other specified abnormal findings of blood chemistry (principal); E78.00 Pure hypercholesterolemia, unspecified
CPT/HCPCS: 36415; 80053; 80061; 82627; 83036; 84402; 84403; 85025; 82626

== ENCOUNTER → 2025-08-01 | Outpatient (CLI) | payer OTHER, SELFPAY ==
[2025-08-01 11:07] LABS: AST(SGOT) 28 U/L (<=37); Alanine Aminotransfer ALT/SGPT 44 U/L (<=46); Albumin, Serum 4.6 g/dL (3.5-5.0); Alkaline Phosphatase 52 U/L (40-129); Anion Gap 12 (5-15); BUN 18 mg/dL (4-19); BUN/Creat Ratio 20.4 RATIO (10-20); Calcium,Total 9.5 mg/dL (7.6-11.0); Carbon Dioxide 24.5 mmol/L (21.0-32.0); Chloride 104 mmol/L (98-108); Cholesterol 135 mg/dL (<=200); Globulin 2.5 g/dL (2.2-4.2); Glucose 106 mg/dL (70-99); Low Density Lipoprotein Calc. 67 mg/dL; Potassium 4.4 mmol/L (3.3-5.1); Triglycerides 84 mg/dL; Very Low Density Lipoprotein 17 mg/dL (5-40); cholesterol:hdl ratio screen 2.61
== END | disposition home or self-care (01) ==
LOC: MFPLAB 09:02
PROVIDERS: PCP Family Medicine; Visit Provider Family Medicine
DX: E88.9 Metabolic disorder, unspecified (principal)
CPT/HCPCS: 36415; 80053; 80061; 83036

== ENCOUNTER 2025-08-06 10:10 | Emergency (ER) | payer OTHER, SELFPAY ==
[2025-08-06 10:11] VITALS: BP 154/109; PULSE 77; RESP 22; TEMP 37.2; O2SAT 99; BMI 37.2
--- NOTE | 2025-08-06 10:19 | CT_ITS ---
PROCEDURE: SPINE LUMBAR WITHOUT CONTRAST 08/06/2025 REASON FOR EXAM: PAIN, TRAUMA TECHNIQUE: Procedure Code: CTSPL Modality: CT Procedure: SPINE LUMBAR WITHOUT CONTRAST Coronal and Sagittal reconstruction series were provided. One or more dose reduction techniques were used (e.g., Automated exposure control, adjustment of the mA and/or kV according to patient size, use of iterative reconstruction technique COMPARISON: None. RADIATION DOSE SUMMARY: CTDlvol: 23.27 mGy DLP: 978.53 mGycm FINDINGS: There is no evidence of fracture or subluxation. The intervertebral disc spaces are preserved. There is no facet arthropathy. There is a transitional vertebrae at S1 with a left pseudoarthrosis. There is calcific vascular disease of the visualized abdominal aorta. CT/Spine Lumbar without Contrast IMPRESSION: 1. No evidence of acute injury. 2. Other findings as noted. Reading Location: [id number]
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
[2025-08-06] MEDS: HYDROmorphone 0.5 MG/0.5 ML SYRINGE IV ×2 (10:30→11:05)
[2025-08-06] MEDS: Ketorolac 30 MG/ML Syringe IV (10:30)
[2025-08-06] MEDS: Orphenadrine 60 MG/2 ML Ampul IM (10:33)
[2025-08-06 12:30] VITALS: BP 135/79; PULSE 66; RESP 16; O2SAT 99
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
[2025-08-06 13:43] VITALS: BP 132/94; PULSE 87; RESP 16; TEMP 36.8; O2SAT 98
== END 2025-08-06 13:48 | disposition home or self-care (01) ==
LOC: ED 12:03 → MS3 13:09
PROVIDERS: Emergency Provider Emergency Medicine; PCP Family Medicine; Visit Provider Emergency Medicine
DX: S39.012A Strain of muscle, fascia and tendon of lower back, initial encounter (principal); Z79.84 Long term (current) use of oral hypoglycemic drugs; Z79.899 Other long term (current) drug therapy; X58.XXXA Exposure to other specified factors, initial encounter
CPT/HCPCS: 72131; 96372; 96374; 96375; 96376; 99285; A4216

== ENCOUNTER → 2025-08-11 | Outpatient (CLI) | payer OTHER, SELFPAY ==
--- NOTE | 2025-08-11 07:43 | MRI_ITS ---
PROCEDURE: SPINE LUMBAR (ROUTINE) 08/11/2025 REASON FOR EXAM: RIGHT RADICULOPATHY/PAIN TECHNIQUE: Procedure Code: MRISPL Modality: MR Procedure: SPINE LUMBAR (ROUTINE) COMPARISON: August 06, 2025 CT FINDINGS: There is grade 1 retrolisthesis at L3-4, 0.3 cm. There is grade 1 retrolisthesis at L4-5, 0.3 cm. The vertebral body height is maintained. Vertebral body marrow signal is normal. Intervertebral disc signal shows desiccation. The facets are aligned. The L1-L2 level: There is no significant disk protrusion. There is no lateral recess stenosis or foraminal stenosis. There is no critical central canal stenosis. The L2-L3 level: There is disc extrusion which extends beyond the L3 endplate with a fragment attached at the margin, measuring 0.5 by 1.0 by 0.8 cm. There is moderate right lateral recess effacement. There is mild bilateral foraminal narrowing secondary to disc protrusion and facet hypertrophy. There is mild central canal stenosis. The L3-L4 level: There is central disc extrusion with a fragment attached at the margin, measuring 0.3 by 0.8 x 0.8 cm. There is moderate left lateral recess effacement. There is mild bilateral foraminal narrowing secondary to disc protrusion and facet hypertrophy. There is no central canal stenosis. The L4-L5 level: There is disc extrusion which extends into the right lateral recess and posterior to the L5 vertebral body, attached at the margin, measuring 0.6 x 1.4 by 1.4 cm. There is severe right lateral recess effacement. There is mild right and moderate left foraminal narrowing secondary to disc protrusion and facet hypertrophy. There is moderate central canal stenosis. The L5-S1 level: There is no significant disk protrusion. There is no lateral recess stenosis or foraminal stenosis. There is no critical central canal stenosis. The visualized conus shows normal signal characteristics. Adjacent soft tissues are unremarkable. MRI/Spine Lumbar (Routine) IMPRESSION: There is grade 1 retrolisthesis at L3-4, 0.3 cm. There is grade 1 retrolisthesi s at L4-5, 0.3 cm. There is disc extrusion at L2-3, L3-4, and L4-5. There is mild central canal stenosis at L2-3, moderate central canal stenosis a t L4-5, with lateral recess and foraminal narrowing. Reading Location: [id number]
== END | disposition home or self-care (01) ==
PROVIDERS: PCP Family Medicine; Referring Provider Family Medicine; Visit Provider Family Medicine
DX: M54.16 Radiculopathy, lumbar region (principal)
CPT/HCPCS: 72148